=== PATIENT | male | born 1940 | race Caucasian/White ===

== ENCOUNTER 2019-05-02 13:37 | Emergency (ER) | payer OTHER ==
[~2019-05-02] VITALS: Ht 177.8 cm; Wt 72.6 kg
== END 2019-05-02 22:21 | disposition home or self-care (01) ==
LOC: ER 13:37
DX: E11.649 Type 2 diabetes mellitus with hypoglycemia without coma (principal)

== ENCOUNTER 2020-07-25 09:21 | Outpatient (CLI) | payer OTHER | END 2020-07-25 09:28 | disposition home or self-care (01) | LOC: TOM 09:21 | PROVIDERS: ATTEND Internal Medicine | DX: K57.90 Diverticulosis of intestine, part unspecified, without perforation or abscess without bleeding (principal); N28.89 Other specified disorders of kidney and ureter; E11.319 Type 2 diabetes mellitus with unspecified diabetic retinopathy without macular edema; Z79.84 Long term (current) use of oral hypoglycemic drugs; M43.07 Spondylolysis, lumbosacral region; I11.9 Hypertensive heart disease without heart failure; E11.39 Type 2 diabetes mellitus with other diabetic ophthalmic complication; E11.40 Type 2 diabetes mellitus with diabetic neuropathy, unspecified; E11.618 Type 2 diabetes mellitus with other diabetic arthropathy; E11.620 Type 2 diabetes mellitus with diabetic dermatitis; E11.628 Type 2 diabetes mellitus with other skin complications; N40.0 Benign prostatic hyperplasia without lower urinary tract symptoms; D12.3 Benign neoplasm of transverse colon; D12.6 Benign neoplasm of colon, unspecified ==

== ENCOUNTER 2020-10-20 12:38 | Inpatient (IN) | payer OTHER ==
[~2020-10-20] VITALS: Ht 177.8 cm; Wt 68.0 kg
[~2020-10-20 12:38] MED LIST: ATORVASTATIN; CEPHALEXIN 500 MG; CHILDREN'S ASPI81 MG; COZAAR; FINASTERIDE5 MG; HUMALOG; INSULINA; LANTUS; LIPOFLAVOVIT; METFORMIN; METOPROLOL; NEURONTIN; NORVASC; PLAVIX; TAMS0.4C
[2020-10-23] MEDS ORDERED: NORVASC2.5 MG (16:27)
[2020-10-23] MEDS ORDERED: LACTULOSE10 GM/152 (16:27)
[2020-10-23] MEDS ORDERED: METOPROLOL TAR100 MG (16:27)
[2020-10-23] MEDS ORDERED: FUROSEMIDE40 MG (16:27)
[2020-10-23] MEDS ORDERED: LOSARTAN POTAS100 MG (16:27)
[2020-10-23] MEDS ORDERED: METOPROLOL SUC100 MG (16:28)
[2020-10-23] MEDS ORDERED: GABAPENTIN300 M2 (16:28)
[2020-10-23] MEDS ORDERED: CLOPIDOGREL BIS75 MG (16:28)
[2020-10-23] MEDS ORDERED: LISINOPRIL-HCT1 EAC2 (16:28)
[2020-10-23] MEDS ORDERED: ATORVASTATIN CA40 MG (16:28)
[2020-10-23] MEDS ORDERED: METFORMIN HCL1000 M3 (16:29)
[2020-10-26] MEDS ORDERED: TAMS0.4C PO (08:10)
[2020-10-26] MEDS ORDERED: CARDIZEM60 MG PO (08:11)
[2020-10-26] MEDS ORDERED: LOSARTAN POTASS50 MG PO (08:12)
[2020-10-26] MEDS ORDERED: HYDRALAZINE HCL25 MG PO (08:13)
[2020-10-26] MEDS ORDERED: HUMALOG100 UNIT/1 SUBCUTANEO (08:14)
== END 2020-10-26 15:48 | disposition home or self-care (01) | DRG 292 ==
LOC: ER 12:38 → MEDJ 17:03
PROVIDERS: ADMIT Internal Medicine; ATTEND Internal Medicine
PROC: 30233N1 Transfusion of Nonautologous Red Blood Cells into Peripheral Vein, Percutaneous Approach (ICD-10-PCS; principal; 2020-10-21)
PROC: 4A12X4Z Monitoring of Cardiac Electrical Activity, External Approach (ICD-10-PCS; 2020-10-21)
PROC: BW2110Z Computerized Tomography (CT Scan) of Abdomen and Pelvis using Low Osmolar Contrast, Unenhanced and Enhanced (ICD-10-PCS; 2020-10-23)
PROC: B24BYZZ Ultrasonography of Heart with Aorta using Other Contrast (ICD-10-PCS; 2020-10-24)
PROC: B54DZZZ Ultrasonography of Bilateral Lower Extremity Veins (ICD-10-PCS; 2020-10-25)
DX: I11.0 Hypertensive heart disease with heart failure (principal); R78.81 Bacteremia; B37.49 Other urogenital candidiasis; D64.9 Anemia, unspecified; E11.65 Type 2 diabetes mellitus with hyperglycemia; I50.9 Heart failure, unspecified; B95.7 Other staphylococcus as the cause of diseases classified elsewhere; Z20.822 Contact with and (suspected) exposure to COVID-19
CPT/HCPCS: 74175